=== PATIENT | female | born 1985 | race Two or more races ===

== ENCOUNTER 2020-11-17 08:11 | Outpatient (CLI) | payer OTHER | END 2020-11-17 08:22 | disposition home or self-care (01) | LOC: SONOGRAMA 08:11 | PROVIDERS: ATTEND Obstetrics & Gynecology | DX: R10.2 Pelvic and perineal pain (principal); N92.1 Excessive and frequent menstruation with irregular cycle ==

== ENCOUNTER 2021-03-17 09:20 | Outpatient (CLI) | payer OTHER | END 2021-03-17 09:32 | disposition home or self-care (01) | LOC: RX STUDY 09:20 | PROVIDERS: ATTEND Obstetrics & Gynecology | DX: N97.1 Female infertility of tubal origin (principal); Q51.818 Other congenital malformations of uterus ==